=== PATIENT | female | born 1945 | race Caucasian/White ===

== ENCOUNTER 2017-10-30 10:44 | Outpatient (CLI) | payer MEDICARE, BC ==
--- NOTE | 2017-10-30 12:55 | RAD ---
CHEST TWO VIEWS: History: Dyspnea. Comparison: 10-10-16 FINDINGS: Patchy lingular airspace opacity. Left apical pulmonary nodule, likely granuloma. Scarring in both bibi ng apices. No pneumothorax or large effusion. No acute osseous abnormality. IMPRESSION: Lingular infiltrate concerning for infection. Follow up after treatment recommended. POS: [facility]
== END 2017-10-30 10:45 | disposition home or self-care (01) ==
LOC: RAD 10:44
PROVIDERS: ATTEND Internal Medicine Critical Care Medicine
DX: R06.00 Dyspnea, unspecified (principal); R91.8 Other nonspecific abnormal finding of lung field
CPT/HCPCS: 71046

== ENCOUNTER 2018-05-06 11:31 | Emergency (ER) | payer MEDICARE, BC ==
[2018-05-06] MEDS ORDERED: Bacitracin Zinc 1 Packet ONE (11:49)
[2018-05-06] MEDS ORDERED: Adacel (T-DAP) 0.5 ML VIAL ONE (11:49)
--- NOTE | 2018-05-06 12:48 | CT ---
CT BRAIN WITHOUT CONTRAST: Indication: History of fall. Comparison: None. FINDINGS: No acute infarct, hemorrhage or hydrocephalus is present. There is mild chronic small vessel white ma tter ischemic change. The septum pellucidum and third ventricle are midline. Skull and extracranial s oft tissues are unremarkable. IMPRESSION: 1. No acute intracranial abnormality. 2. Chronic small vessel white matter ischemic change. POS: [facility]
--- NOTE | 2018-05-06 12:49 | CT ---
CT CERVICAL SPINE WITHOUT CONTRAST: INDICATION: History of neck injury after fall. COMPARISON: None. FINDINGS: No acute fracture or subluxation is evident. Craniocervical junction is within normal limits. There is moderate multilevel spondylosis of the thoracic spine. Osseous central canal is within normal li mits. There is calcified granuloma in the left upper lobe. There is pleural and parenchymal scarring invol ving both lung apices. IMPRESSION: No acute fracture or subluxation is evident. Moderate spondylosis of the cervical spine. POS: [facility]
== END 2018-05-06 12:47 | disposition home or self-care (01) ==
LOC: SCSER 11:31
DX: S16.1XXA Strain of muscle, fascia and tendon at neck level, initial encounter (principal); S00.93XA Contusion of unspecified part of head, initial encounter; E03.9 Hypothyroidism, unspecified; E78.5 Hyperlipidemia, unspecified; Z79.899 Other long term (current) drug therapy; W11.XXXA Fall on and from ladder, initial encounter
CPT/HCPCS: 70450; 72125; 90471; 90715

== ENCOUNTER 2019-07-01 09:55 | Outpatient (CLI) | payer MEDICARE, OTHER ==
--- NOTE | 2019-07-01 11:57 | RAD ---
SACRUM AND COCCYX: Date; 07/01/19 HISTORY: Tailbone pain after exercising. FINDINGS: I do not see any signs of fracture. There is a slight increased gap between one of the lower coccygea l segments. This is probably just developmental. SI joints are unremarkable. IMPRESSION: Slightly widened gap between two of the lower coccygeal segments. This could very well be a developme ntal change. POS: [facility]
--- NOTE | 2019-07-01 11:58 | RAD ---
LUMBAR SPINE SERIES 2 VIEWS: Date: 07/01/19 HISTORY: Low back and tailbone pain due to injury. FINDINGS: Vertebral bodies are normal in height. There is degenerative disc narrowing along the course of the s pine. There is moderate narrowing at L2-3. There is mild narrowing at L3-4, L4-5, and L5-S1. Pedicles are intact. Vascular calcifications are noted. Postop cholecystectomy changes are seen. IMPRESSION: Moderate arthritic changes of the spine. No acute injury. POS: [facility]
== END 2019-07-01 09:56 | disposition home or self-care (01) ==
LOC: SCSRAD 09:55
PROVIDERS: ATTEND Family Medicine
DX: M54.5 Low back pain (principal); M53.3 Sacrococcygeal disorders, not elsewhere classified; M99.03 Segmental and somatic dysfunction of lumbar region; M99.05 Segmental and somatic dysfunction of pelvic region; M47.816 Spondylosis without myelopathy or radiculopathy, lumbar region
CPT/HCPCS: 72100; 72220

== ENCOUNTER 2020-01-30 10:57 | Outpatient (CLI) | payer MEDICARE, OTHER ==
--- NOTE | 2020-01-30 12:15 | MRI ---
MRI Cervical Spine WO Con History: M47.812 cervical spondylosis Comparison: Cervical spine CT 2018 Findings: Paraspinal musculature is symmetric. No marrow infiltrative process. No acute fracture or malalignment. T2 hyperintense nodule left thyroid. Levels are as follows: C2/C3: Mild disc desiccation and height loss. Mild uncinate process approach. Low-grade circumferenti al disc bulge. Minimal effacement of ventral CSF space with the spinal canal measuring 9 mm. Mild right neural foraminal narrowing. Moderate to severe right facet arthropathy. C3/C4: Mild disc desiccation and height loss. Circumferential disc osteophyte complex. Mild effacemen t of the ventral CSF space with near cord abutment and spinal canal narrowing to 7 mm. Moderate to severe right and mild left neural foraminal narrowing. C4/C5: Mild disc desiccation and height loss. Left lateral recess disc osteophyte complex extending t o the subforaminal zone. Mild right uncinate process hypertrophy. Moderate to severe left neural foraminal narrowing. Moderate bilateral hypertrophic facet arthrosis. Low-grade effacement of ventral CSF space and spinal canal not significantly narrowed. C5/C6: Moderate degenerative disc space height loss is circumferential disc osteophyte complex. Moder ate left and mild right hypertrophic facet arthrosis. Effacement of ventral CSF space with near cord abutment and spinal canal narrowing to 7 mm. Moderate bilateral neural foraminal narrowing. C6/C7: Moderate degenerative disc space height loss with disc osteophyte complex, circumferential. Ef facement of the ventral CSF space with near cord abutment and spinal canal narrowing to 7 mm. Moderate bilateral neural foraminal narrowing. Mild left and right hypertrophic facet arthrosis. C7/T1: Mild disc desiccation and height loss. Relatively high-grade facet degenerative change with de generative 1 mm anterolisthesis. No significant neural foraminal or spinal canal narrowing. Impression: Multilevel high-grade spondylosis mid cervical spine.
== END 2020-01-30 10:58 | disposition home or self-care (01) ==
LOC: BICMRI 10:57
PROVIDERS: ATTEND Anesthesiology Pain Medicine
DX: M47.812 Spondylosis without myelopathy or radiculopathy, cervical region (principal); M48.02 Spinal stenosis, cervical region
CPT/HCPCS: 72141

== ENCOUNTER 2021-05-26 15:03 | Outpatient (CLI) | payer MEDICARE, OTHER | END 2021-05-26 15:04 | disposition home or self-care (01) | LOC: RAD 15:03 | PROVIDERS: ATTEND Internal Medicine Critical Care Medicine | DX: R06.00 Dyspnea, unspecified (principal) | CPT/HCPCS: 71046 ==

== ENCOUNTER 2022-05-24 09:23 | Outpatient (CLI) | payer MEDICARE, OTHER | END 2022-05-24 09:24 | disposition home or self-care (01) | LOC: RAD 09:23 | PROVIDERS: ATTEND Internal Medicine Critical Care Medicine | DX: R06.00 Dyspnea, unspecified (principal); J98.4 Other disorders of lung | CPT/HCPCS: 71046 ==

== ENCOUNTER 2022-10-23 07:22 | Outpatient (CLI) | payer MEDICARE, OTHER | END 2022-10-23 07:23 | disposition home or self-care (01) | LOC: ULT 07:22 | PROVIDERS: ATTEND Family Medicine Sports Medicine | DX: R55 Syncope and collapse (principal); I08.1 Rheumatic disorders of both mitral and tricuspid valves | CPT/HCPCS: 93306; 93880 ==

== ENCOUNTER 2024-01-23 10:40 | Outpatient (CLI) | payer MEDICARE, OTHER | END 2024-01-23 10:41 | disposition home or self-care (01) | LOC: BICMAMMO 10:40 | PROVIDERS: ATTEND Family Medicine Sports Medicine | DX: Z12.31 Encounter for screening mammogram for malignant neoplasm of breast (principal) | CPT/HCPCS: 77063; 77067 ==

== ENCOUNTER 2024-08-25 12:30 | Outpatient (CLI) | payer MEDICARE, OTHER | END 2024-08-25 12:31 | disposition home or self-care (01) | PROVIDERS: ATTEND Psychiatry & Neurology Neurology | DX: I63.9 Cerebral infarction, unspecified (principal) | CPT/HCPCS: 93225; 93226 ==